=== PATIENT | female | born 2000 | race Hispanic/Latino ===

== ENCOUNTER 2022-04-26 01:30 | Emergency (ER) | payer MEDICAID ==
[~2022-04-26] VITALS: Ht 157.5 cm; Wt 65.3 kg
[2022-04-26] MEDS ORDERED: IBUP-2070 PO (03:30)
[2022-04-26] MEDS ORDERED: KETOROLAC 15MG/ML VIAL (15MG/ML) IM ONE (03:30)
[2022-04-26 04:23] VITALS: BP 105/78
== END 2022-04-26 04:43 | disposition home or self-care (01) ==
LOC: EDH 01:30
DX: G58.9 Mononeuropathy, unspecified (principal)
CPT/HCPCS: 73030; 73070; 81025; 96372; 99284; J1885

== ENCOUNTER 2023-08-02 01:46 | Emergency (ER) | payer MEDICAID, OTHER ==
[~2023-08-02] VITALS: Ht 157.5 cm; Wt 74.8 kg
[~2023-08-02 01:46] MED LIST: IBUP-2070 PO
[2023-08-02 02:28] LABS: BASOPHILS # (AUTO) 0.02 K/uL (0.00-0.20); BASOPHILS % (AUTO) 0.2 % (0.0-5.0); EOSINOPHILS # (AUTO) 0.13 K/uL (0.00-0.70); EOSINOPHILS % (AUTO) 1.5 % (0.0-8.0); HEMATOCRIT 36.8 % (36-48); IMMATURE GRANULOCYTE ABSOLUTE 0.02 K/uL (0-1); LYMPHOCYTES # (AUTO) 2.9 K/uL (1.0-4.8); MEAN CORPUSCULAR HGB CONC 34.2 g/dL (32.0-36.0); MEAN CORPUSCULAR VOLUME 84.6 fL (80-100); MONOCYTES # (AUTO) 0.6 K/uL (0.1-1.0); NEUTROPHILS # (AUTO) 5.1 K/uL (1.8-7.7); NEUTROPHILS % (AUTO) 58.1 % (40.0-77.0); PLATELET COUNT (AUTO) 317 K/uL (130-400); RED BLOOD CELL COUNT(AUTO) 4.35 MIL/uL (4.00-5.50); RED CELL DISTRIBUTION WIDTH 12.8 % (11.0-15.5); WHITE BLOOD COUNT (AUTO) 8.7 K/uL (4.8-10.8)
[2023-08-02 02:56] LABS: CREATININE 0.6 mg/dL (0.5-1.5); POTASSIUM 3.7 mmol/L (3.5-5.1)
[2023-08-02 03:01] LABS: ALBUMIN 3.6 g/dL (3.5-5.0); BILIRUBIN,TOTAL 0.1 mg/dL (0.2-1.0); TOTAL PROTEIN, SERUM 8.5 g/dL (6.0-8.3)
[2023-08-02 04:02] LABS: APPEARANCE,URINE CLEAR (CLEAR); BILIRUBIN,URINE NEGATIVE (NEGATIVE); COLOR,URINE LIGHT-YELLOW (YELLOW); GLUCOSE, URINE (UA) NEGATIVE (NEGATIVE); KETONES,URINE NEGATIVE (NEGATIVE); LEUKOCYTE ESTERASE ,URINE 75 Leu/uL (NEGATIVE); NITRATE,URINE NEGATIVE (NEGATIVE); OCCULT BLOOD,URINE NEGATIVE (NEGATIVE); PH,URINE 6.5 (5.0-8.0); PROTEIN,URINE NEGATIVE (NEGATIVE); UROBILINOGEN,URINE 0.2 mg/dL (0.2-1.0)
[2023-08-02 04:06] LABS: ADD UA MICROSCOPIC YES
[2023-08-02 04:12] LABS: HCG,QUALITATIVE URINE NEGATIVE (NEGATIVE)
[2023-08-02 04:14] LABS: MUCUS,URINE RARE LPF (None Seen); SQUAMOUS EPITHELIAL CELL,UR FEW /HPF (0-2); WBC,URINE 0-1 /HPF (0-1)
[2023-08-02 05:06] VITALS: BP 118/73; PULSE 85; RESP 17
== END 2023-08-02 05:08 | disposition home or self-care (01) ==
LOC: EDH 01:46
DX: R10.84 Generalized abdominal pain (principal)
CPT/HCPCS: 36415; 80053; 81001; 81025; 82550; 83690; 85025; 87088

== ENCOUNTER 2025-10-17 21:57 | Emergency (ER) | payer MEDICAID ==
[~2025-10-17] VITALS: Ht 157.5 cm; Wt 72.6 kg
[~2025-10-17 21:57] MED LIST changes: +IBUP-1492 PO; -IBUP-2070 PO
--- NOTE | 2025-10-17 22:20 | ERN ---
ED Note History of Present Illness Stated Complaint: WEAKNESS Chief Complaint: Weakness Time Seen by MD: 22:04 Dictation: Patient is a male who presented to the ER complaining of weakness, headache, dizziness and loose stools. Stated that symptoms started today. The patient denies fever, chills, cough, chest pain, no urinary symptoms. Allergies: Coded Allergies: No Known Allergies (Unverified Allergy, Unknown, 08/02/23) Home Meds Active Scripts Ibuprofen (Ibuprofen) 600 Mg Tablet, 600 MG PO Q6H PRN for PAIN, #30 TAB Prov:CAMILLE PRINGLE MD 04/26/22 Past Medical History Past Medical History: No Pertinent History Surgical History: None Social History: Negative, Lives with family History: Not Applicable Review of System Dictation NEGATIVE EXCEPT PER HPI Constitutional: Negative for fever,chills. He does reports fatigue Eyes: Negative for injury, pain,redness, and discharge ENT: Negative for injury,pain or swelling Cardiovascular: denies chest pain, palpitations, and edema Respiratory: Negative for shortness of breath, cough, and wheezing, Abdomen/GI: Negative for abdominal pain, nausea, vomiting, diarrhea, and constipation Back: Negative for injury and pain : Negative for injury, bleeding and discharge MS/Extremity: Negative for injury and deformity Skin: Negative for rash, and discoloration Neuro: Reports headache and dizziness, no numbness, tingling, and seizure Psych: Negative for suicide ideation, homicidal ideation, and hallucinations Initial Vital Sign VS Vital Signs Date Time Temp Pulse Resp B/P (MAP) Pulse Ox O2 Delivery O2 Flow Rate FiO2 10/17/25 22:00 98.8 88 18 132/84 99 10/17/25 23:32 Room Air* 0 21 Physical Exam Dictation General: awake, alert, NAD Head/Face: Normocephalic, atraumatic Eyes: PERRL, EOMI, vision at baseline ENT: oral cavity clear, TMs clear, no signs of infection Neck: Trachea midline, supple, no nuchal rigidity Cardiovascular: RRR, normal S1/S2, No MRGs, no JVD Respiratory: CTAB, no respiratory distress, No rales or wheezes Abdomen: Soft , no tender Skin: Warm, dry, normal turgor, no rash MS/Extremity: Pulses equal, no cyanosis, neurovascular intact, FROM Neuro: COAx4, GCS 15, strength 5/5, CN 2-12 intact, normal cerebellar exam, normal gait, Psych: Normal behavior, mood, and affect normal Results (Laboratory/Radiology) Laboratory/Radiology Laboratory Tests Test 10/17/25 22:22 10/18/25 00:00 White Blood Count 6.0 K/uL (4.8-10.8) Red Blood Count 4.83 MIL/uL (4.00-5.50) Hemoglobin 13.2 g/dL (12.0-16.0) Hematocrit 39.6 % (36-48) Mean Corpuscular Volume 82.0 fL (79-99) Mean Corpuscular Hemoglobin 27.3 pg (27.0-33.0) Mean Corpuscular Hemoglobin Concent 33.3 g/dL (32.0-36.0) Red Cell Distribution Width 13.4 % (11.0-15.5) Platelet Count 322 K/uL (130-400) Mean Platelet Volume 9.0 fL (7.5-10.5) Immature Granulocyte % (Auto) 0.2 % (0-1) Neutrophils (%) (Auto) 59.8 % (40.0-77.0) Lymphocytes (%) (Auto) 30.1 % (21.0-51.0) Monocytes (%) (Auto) 7.9 % (3.0-13.0) Eosinophils (%) (Auto) 1.5 % (0.0-8.0) Basophils (%) (Auto) 0.5 % (0.0-5.0) Neutrophils # (Auto) 3.6 K/uL (1.8-7.7) Lymphocytes # (Auto) 1.8 K/uL (1.0-4.8) Monocytes # (Auto) 0.5 K/uL (0.1-1.0) Eosinophils # (Auto) 0.09 K/uL (0.00-0.70) Basophils # (Auto) 0.03 K/uL (0.00-0.20) Absolute Immature Granulocyte (auto 0.01 K/uL (0-1) Nucleated Red Blood Cells 0.0 % (0.0-0.19) Sodium Level 138 mmol/L (136-145) Potassium Level 4.0 mmol/L (3.5-5.1) Chloride Level 102 mmol/L (101-111) Carbon Dioxide Level 30 mmol/L (21-32) Blood Urea Nitrogen 9 mg/dL (7-18) Creatinine 0.6 mg/dL (0.5-1.0) Glomerular Filtration Rate Calc 129 mL/min (>90) Random Glucose 107 mg/dL (70-105) H Total Calcium 9.0 mg/dL (8.5-10.1) Urine Color COLORLESS (YELLOW) Urine Appearance CLEAR (CLEAR) Urine pH 6.5 (5.0-8.0) Urine Specific [place] 1.013 (1.001-1.031) Urine Protein NEGATIVE mg/dL (NEGATIVE) Urine Glucose (UA) NEGATIVE mg/dL (NEGATIVE) Urine Ketones NEGATIVE mg/dL (NEGATIVE) Urine Occult Blood NEGATIVE (NEGATIVE) Urine Nitrate NEGATIVE (NEGATIVE) Urine Bilirubin NEGATIVE mg/dL (NEGATIVE) Urine Urobilinogen 0.2 mg/dL (0.2-1.0) Urine Leukocyte Esterase NEGATIVE Gene/uL Urine HCG, Qualitative NEGATIVE (NEGATIVE) ED Course ED Course Orders Procedure Category Date Status Time Urinalysis Profile LAB 10/17/25 Complete 22:14 ,Urine Test LAB 10/17/25 Complete 22:14 Cbc With Differential LAB 10/17/25 Complete 22:14 Basic Metabolic Panel LAB 10/17/25 Complete 22:14 0.9%Nacl 1000ml (Ns PHA 10/17/25 Complete 1000ml) 22:30 Current Medications Medications (Trade) Dose Ordered Sig/Kirsten Route PRN Reason Start Time Stop Time Status Last Admin Dose Admin Sodium Chloride 1,000 ml @ 0 mls/hr ONCE ONCE IV 10/17/25 22:30 10/17/25 22:31 DC 10/17/25 23:30 Vital Signs Date Time Temp Pulse Resp B/P (MAP) Pulse Ox O2 Delivery O2 Flow Rate FiO2 10/17/25 23:32 97.9 92 19 131/71 98 Room Air* 0 21 10/17/25 22:00 98.8 88 18 132/84 99 Medical Decision Making MDM 24-year-old female who presented to the ER complaining of fatigue, headache, dizziness, loose stool x1 day Viral gastroenteritis Dehydration Possible UTI Possible Ordered a CBC, BNP, UA, UA . 1 L bolus ordered IV NS Laboratory workup within normal limits. UA negative for UTI Patient re-evaluate the bedside said she is feeling much better after IV fluids. DX & DISP Disposition: Discharge Departure Impression: Primary Impression: Dehydration Additional Impressions: Fatigue, Viral diarrhea Condition: Improved Additional Instructions: Instruct patient to drink plenty amount of water to keep hydrated. RETURN TO ER FOR ANY ACUTE OR WORSENING SYMPTOMS. FOLLOW-UP IN 1-2 DAYS WITH PRIMARY PROVIDER FOR RECHECK OF TODAY'S SYMPTOMS. Referrals: SELF,REFERRAL (PCP) Time of Disposition: 00:17 GT SAWYER MD Oct 17, 2025 22:20
[2025-10-17 22:30] LABS: IMMATURE GRANULOCYTE ABSOLUTE 0.01 K/uL (0-1); NUCLEATED RED BLOOD CELLS 0.0 % (0.0-0.19); PLATELET COUNT (AUTO) 322 K/uL (130-400); RED BLOOD CELL COUNT(AUTO) 4.83 MIL/uL (4.00-5.50); RED CELL DISTRIBUTION WIDTH 13.4 % (11.0-15.5); WHITE BLOOD COUNT (AUTO) 6.0 K/uL (4.8-10.8)
[2025-10-17 22:38] LABS: CREATININE 0.6 mg/dL (0.5-1.0); GLOMERULAR FILTR. RATE CALC 129.0 mL/min (>90); GLUCOSE,RANDOM 107.0 mg/dL (70-105); SODIUM SERUM 138.0 mmol/L (136-145); UREA NITROGEN, BLOOD 9.0 mg/dL (7-18)
[2025-10-17] MEDS: 0.9%NACL 1000ML 1,000 ML IV ONE (23:30)
[2025-10-17 23:32] VITALS: BP 131/71; PULSE 92; RESP 19; TEMP 97.9; O2SAT 98
[2025-10-18 00:09] LABS: ADD UA MICROSCOPIC NO; APPEARANCE,URINE CLEAR (CLEAR); GLUCOSE, URINE (UA) NEGATIVE (NEGATIVE); LEUKOCYTE ESTERASE ,URINE NEGATIVE Leu/uL (NEGATIVE); NITRATE,URINE NEGATIVE (NEGATIVE); OCCULT BLOOD,URINE NEGATIVE (NEGATIVE)
[2025-10-18 00:10] LABS: HCG,QUALITATIVE URINE NEGATIVE (NEGATIVE)
== END 2025-10-18 00:23 | disposition home or self-care (01) ==
LOC: EDH 21:57
DX: E86.0 Dehydration (principal); A08.4 Viral intestinal infection, unspecified; R53.83 Other fatigue; R42 Dizziness and giddiness
CPT/HCPCS: 99283; 96360; 80048; 85025; 81003; 81025; 36415; J7030

== ENCOUNTER 2025-10-21 09:51 | Emergency (ER) | payer MEDICAID ==
[~2025-10-21] VITALS: Ht 157.5 cm; Wt 75.3 kg
--- NOTE | 2025-10-21 10:19 | ERN ---
ED Note History of Present Illness Stated Complaint: LLQ PAIN Chief Complaint: Abdominal Pain Time Seen by MD: 10:06 Dictation: PATIENT IS A 25-YEAR-OLD FEMALE COMING IN TODAY WITH COMPLAINTS OF UMBILICAL AND LEFT LOWER QUADRANT/ADNEXAL PAIN ONSET WAS YESTERDAY. NO FEVER NO CHILLS NO NAUSEA VOMITING. SHE DENIES CHANGES IN URINATION. SHE STATES SHE HAS ANYTHING TAKEN NOTHING PRIOR TO ARRIVAL FOR PAIN. LMP WAS LAST MONTH. Allergies: Coded Allergies: No Known Allergies (Unverified Allergy, Unknown, 08/02/23) Home Meds Active Scripts Ibuprofen (Ibuprofen 800 mg Tab) 800 Mg Tab, 800 MG PO Q8H PRN for fever or pain, #30 TAB 0 Refills Prov:HOANG SETHI POCKET [employer] CREASING MACHINE OPERATOR 10/21/25 Calcium Carbonate (Calcium) 500 Mg Calcium (1250 Mg) Tab.chew, 1 TAB PO BID for 30 Days, #60 TAB 0 Refills Prov:HOANG SETHI POCKET FLAP CREASING MACHINE OPERATOR 10/21/25 Ibuprofen (Ibuprofen) 600 Mg Tablet, 600 MG PO Q6H PRN for PAIN, #30 TAB Prov:CAMILLE PRINGLE MD 04/26/22 Past Medical History Past Medical History: No Pertinent History Surgical History: None Social History: Negative, Lives with family History: Not Applicable LMP: Sep 23, 2025 RN Note Reviewed/Agreed w/PFSH: Yes Review of System Dictation CONSTITUTIONAL: NEGATIVE EXCEPT FOR HPI HEAD/FACE: NEGATIVE EXCEPT FOR HPI EENT: NEGATIVE EXCEPT FOR HPI RESPIRATORY: NEGATIVE EXCEPT FOR HPI GASTROINTESTINAL/ABDOMINAL: NEGATIVE EXCEPT FOR HPI PERIUMBILICAL AND LEFT ADNEXAL/PELVIC PAIN GENITOURINARY: NEGATIVE EXCEPT FOR HPI MUSCULOSKELETAL: NEGATIVE EXCEPT FOR HPI INTEGUMENTARY: NEGATIVE EXCEPT FOR HPI NEUROLOGICAL/PSYCH: NEGATIVE EXCEPT FOR HPI HEMATOLOGIC/LYMPHATIC: NEGATIVE EXCEPT FOR HPI ALL SYSTEMS NEGATIVE, EXCEPT NOTED ABOVE. 13 POINT REVIEW OF SYSTEMS ASSESSED AND ALL NEGATIVE EXCEPT FOR ABOVE. Initial Vital Sign VS Vital Signs Date Time Temp Pulse Resp B/P (MAP) Pulse Ox O2 Delivery O2 Flow Rate FiO2 10/21/25 09:54 97.9 101 18 150/61 98 Room Air 0 10/21/25 09:56 21 Physical Exam Dictation VITAL SIGNS REVIEWED GENERAL APPEARANCE: ALERT, ORIENTED X 3, MILD ACUTE DISTRESS, WELL DEVELOPED, NOURISHED. OBESE HEAD AND FACE: NON-TRAUMATIC. EYES: PERRL, PINK CONJUNCTIVAS, EYELID NO TRAUMA, ANTERIOR CHAMBER WITH ARCUS SENILIS. EARS: PINNAS INTACT AND NO SIGNS OF TRAUMA OR ERYTHEMA EAR CANALS CLEAR AND NO DISCHARGE TM NO ERYTHEMA NOSE: NO DISCHARGE, NO BLEEDING. OROPHARYNX: MOUTH NORMAL, TONGUE PINK, PHARYNX CLEAR,NO ERYTHEMA, TONSILS NO EXUDATES, NO ABSCESSES NOTED, MUCOUS MEMBRANE MOIST NECK: SUPPLE, NON-TENDER, NO THYROMEGALY, NO MASSES, NO JVD, NO BRUITS BREAST:DEFERRED CHEST:NO TENDERNESS, NO CREPITUS, NO PARADOXICAL MOVEMENT, NO RETRACTIONS LUNGS:CLEAR, WELL-VENTILATED, SYMMETRIC, NO RALES, NO WHEEZING, NO RHONCHI, NO STRIDOR, GOOD BREATH SOUNDS BILATERALLY HEART: REGULAR RATE, REGULAR RHYTHM, NO MURMUR, NO GALLOPS VASCULAR: NO PERIPHERAL EDEMA, ABDOMEN: SOFT, POSITIVE BOWEL SOUNDS, NONDISTENDED, NO GUARDING, MILD PERIUMBILICAL AND LEFT LOWER PELVIC/ADNEXAL PAIN. REBOUND TENDERNESS NEGATIVE CVAT BILATERAL RECTAL: DEFERRED GENITAL: DEFERRED NEUROLOGICAL: NORMAL SPEECH, MOTOR FUNCTION INTACT, SENSORY FUNCTION INTACT MUSCULOSKELETAL: NECK NONTENDER, FULL RANGE OF MOTION, BACK NONTENDER, FULL RANGE OF MOTION, EXTREMITIES: NONTENDER, FULL RANGE OF MOTION SKIN: COLOR PINK, DRY, NO TURGOR, NO RASH, NO LACERATIONS, NO ABRASIONS, NO CONTUSIONS. LYMPHATIC: DEFERRED Results (Laboratory/Radiology) Laboratory/Radiology Laboratory Tests Test 10/21/25 10:22 10/21/25 10:26 White Blood Count 9.8 K/uL (4.8-10.8) Red Blood Count 4.58 MIL/uL (4.00-5.50) Hemoglobin 12.4 g/dL (12.0-16.0) Hematocrit 37.4 % (36-48) Mean Corpuscular Volume 81.7 fL (79-99) Mean Corpuscular Hemoglobin 27.1 pg (27.0-33.0) Mean Corpuscular Hemoglobin Concent 33.2 g/dL (32.0-36.0) Red Cell Distribution Width 13.4 % (11.0-15.5) Platelet Count 272 K/uL (130-400) Mean Platelet Volume 9.1 fL (7.5-10.5) Immature Granulocyte % (Auto) 0.3 % (0-1) Neutrophils (%) (Auto) 76.6 % (40.0-77.0) Lymphocytes (%) (Auto) 15.9 % (21.0-51.0) L Monocytes (%) (Auto) 6.1 % (3.0-13.0) Eosinophils (%) (Auto) 1.0 % (0.0-8.0) Basophils (%) (Auto) 0.1 % (0.0-5.0) Neutrophils # (Auto) 7.5 K/uL (1.8-7.7) Lymphocytes # (Auto) 1.6 K/uL (1.0-4.8) Monocytes # (Auto) 0.6 K/uL (0.1-1.0) Eosinophils # (Auto) 0.10 K/uL (0.00-0.70) Basophils # (Auto) 0.01 K/uL (0.00-0.20) Absolute Immature Granulocyte (auto 0.03 K/uL (0-1) Nucleated Red Blood Cells 0.0 % (0.0-0.19) Sodium Level 133 mmol/L (136-145) L Potassium Level 3.8 mmol/L (3.5-5.1) Chloride Level 101 mmol/L (101-111) Carbon Dioxide Level 27 mmol/L (21-32) Blood Urea Nitrogen 17 mg/dL (7-18) Creatinine 0.5 mg/dL (0.5-1.0) Glomerular Filtration Rate Calc 135 mL/min (>90) Random Glucose 96 mg/dL (70-105) Total Calcium 8.1 mg/dL (8.5-10.1) L Lipase 39 U/L (16-77) Urine Color LIGHT-YELLOW (YELLOW) Urine Appearance CLEAR (CLEAR) Urine pH 5.5 (5.0-8.0) Urine Specific [place] 1.021 (1.001-1.031) Urine Protein NEGATIVE mg/dL (NEGATIVE) Urine Glucose (UA) NEGATIVE mg/dL (NEGATIVE) Urine Ketones NEGATIVE mg/dL (NEGATIVE) Urine Occult Blood NEGATIVE (NEGATIVE) Urine Nitrate NEGATIVE (NEGATIVE) Urine Bilirubin NEGATIVE mg/dL (NEGATIVE) Urine Urobilinogen 0.2 mg/dL (0.2-1.0) Urine Leukocyte Esterase NEGATIVE Gene/uL Urine HCG, Qualitative NEGATIVE (NEGATIVE) 1215/ULTRASOUND DEMONSTRATES BILATERAL FLOW TO OVARIES, NO MASSES NO CYST Labs Reviewed?: Yes ED Course ED Course Orders Procedure Category Date Status Time Cbc With Differential LAB 10/21/25 Complete 10:16 ,Urine Test LAB 10/21/25 Complete 10:16 Urinalysis Profile LAB 10/21/25 Complete 10:16 Lipase LAB 10/21/25 Complete 10:16 Basic Metabolic Panel LAB 10/21/25 Complete 10:16 Acetaminophen 500mg PHA 10/21/25 Complete Tab (Tylenol 500mg T 11:30 Us Pelvic Non-Ob Comp US 10/21/25 Resulted 11:00 Current Medications Medications (Trade) Dose Ordered Sig/Kirsten Route PRN Reason Start Time Stop Time Status Last Admin Dose Admin Acetaminophen (TYLenol 500MG TAB) 1,000 mg ONCE ONCE PO 10/21/25 11:30 10/21/25 11:31 DC 10/21/25 12:16 Vital Signs Date Time Temp Pulse Resp B/P (MAP) Pulse Ox O2 Delivery O2 Flow Rate FiO2 10/21/25 12:34 99.0 98 18 115/55 99 Room Air* 0 10/21/25 10:26 98.6 101 18 116/71 97 Room Air* 0 10/21/25 09:56 97.9 101 16 150/61 99 Room Air* 0 10/21/25 09:54 97.9 101 18 150/61 98 Room Air 0 1215 PATIENT HAS A NEGATIVE ABDOMINAL WORKUP TO INCLUDE NO FEVER NO CHILLS URINE IS NEGATIVE HCG NEGATIVE ULTRASOUND NEGATIVE Medical Decision Making MDM MDM: DIFFERENTIAL DIAGNOSIS: ACUTE UTI/HERNIA/ELECTROLYTE IMBALANCE/DEHYD RATION/PELVIC PAIN/ECTOPIC /OVARIAN CYST/ADNEXAL PAIN RATIONALE: TESTS CONSIDERED AND ORDERED SECONDARY TO SHARED DECISION MAKING INCLUDE: LABS/URINALYSIS/ULTRASOUND PREVIOUS OUTSIDE RECORDS REVIEWED: OLD ER VISITS. RISK OF COMPLICATION AND/OR MORBIDITY OR MORTALITY OF PATIENT MANAGEMENT: NONE MEDICATIONS-PER MEDICATION RECONCILIATION NEED FOR HOSPITALIZATION: PATIENT DOES NOT MEET CRITERIA FOR HOSPITALIZATION. NONE NEED FOR EMERGENCY MAJOR/MINOR SURGERY: NO THERE ARE NO SOCIAL CONCERNS WITH THIS PATIENT. PRESCRIPTION DRUG MANAGEMENT IBUPROFEN PRESCRIPTIONS WILL INCLUDE SYMPTOMATIC CARE PATIENT'S PRIOR EXTERNAL MEDICAL RECORDS FROM OTHER ER VISITS WERE REVIEWED BY ME INDICATED. PRIOR TESTING AND RESULTS FROM PREVIOUS VISITS WERE REVIEWED. PRIOR TESTS WERE TAKEN INTO ACCOUNT WITH MEDICAL DECISION MAKING AND RESOURCE UTILIZATION, INDEPENDENT HISTORIAN/HISTORIANS WERE USED TO OBTAIN COMPLETE MEDICAL HISTORY. I INDEPENDENTLY INTERPRETED THE TEST THAT WERE PERFORMED, RESULTS WERE REVIEWED BY ME AND CONSIDERED FINDINGS ON RADIOLOGY IF ORDERED. MEDICAL MANAGEMENT AND EXAMINATION INTERPRETATION DISCUSSIONS WERE HAD BY ME WITH OTHER QUALIFIED HEALTHCARE PROFESSIONALS INDICATED FOR THE PATIENT'S CARE. DX & DISP Disposition: Discharge Departure Impression: Primary Impression: Pelvic pain in female Additional Impressions: Hyponatremia, Hypocalcemia Condition: Stable Scripts Ibuprofen (Ibuprofen 800 mg Tab) 800 Mg Tab 800 MG PO Q8H PRN for fever or pain, #30 TAB 0 Refills Prov: HOANG SETHI 10/21/25 Calcium Carbonate (Calcium) 500 Mg Calcium (1250 Mg) Tab.chew 1 TAB PO BID for 30 Days, #60 TAB 0 Refills Prov: HOANG SETHI 10/21/25 Additional Instructions: FOLLOW-UP WITH PRIMARY CARE PROVIDER IN 1 TO 2 DAYS. TAKE MEDICATIONS DIRECTED HERE IN THE EMERGENCY ROOM. OKAY TO CONTINUE HOME MEDICATIONS UNLESS OTHERWISE DISCUSSED DURING YOUR VISIT IN THE EMERGENCY ROOM TODAY. RETURN TO YOUR NEAREST EMERGENCY ROOM IF SYMPTOMS WORSEN OR IF THERE IS NO IMPROVEMENT. CALL 911 IF YOU NEED IMMEDIATE ASSISTANCE. TAKE TYLENOL OR MOTRIN OVER-THE-C OUNTER NEEDED AND IF NO CONTRAINDICATIONS ARE PRESENT. INCREASE ORAL HYDRATION. A WOUND CULTURE OR URINE CULTURE WAS ORDERED HERE IN THE EMERGENCY ROOM DEPARTMENT PLEASE FOLLOW-UP WITH PRIMARY CARE PROVIDER AND ADVISE THEM TO GET REPEAT PORTS FROM OUR FACILITY. IF YOU HAD ANY JESSICA WRAP/SPLINTS THAT WERE APPLIED HERE, PLEASE DO NOT REMOVE THEM UNTIL YOU SEE YOUR PRIMARY CARE OR SPECIALTY. TAKE IBUPROFEN DIRECTED WITH FOOD FOR PAIN. TAKE CALCIUM DIRECTED UNTIL GONE. DIET AND ACTIVITY TOLERATED, SEE YOUR PRIMARY CARE DOCTOR FOR FOLLOW UP AND MANAGEMENT Referrals: SELF,REFERRAL (PCP) Time of Disposition: 12:17 I have reviewed the case, and I agree with, Diagnosis and Plan I performed a substantive portion of the visit. I have reviewed and personally made and approve the management plan that is documented in the notes by myself with OLE/resident. I acknowledged full responsibility for the patient's management plan. HOANG SETHI Oct 21, 2025 10:19 MADELIN JASON DO Oct 21, 2025 15:44
[2025-10-21 10:34] LABS: IMMATURE GRANULOCYTE ABSOLUTE 0.03 K/uL (0-1); NUCLEATED RED BLOOD CELLS 0.0 % (0.0-0.19); PLATELET COUNT (AUTO) 272 K/uL (130-400); RED BLOOD CELL COUNT(AUTO) 4.58 MIL/uL (4.00-5.50); RED CELL DISTRIBUTION WIDTH 13.4 % (11.0-15.5); WHITE BLOOD COUNT (AUTO) 9.8 K/uL (4.8-10.8)
[2025-10-21 10:37] LABS: CREATININE 0.5 mg/dL (0.5-1.0); GLOMERULAR FILTR. RATE CALC 135.0 mL/min (>90); GLUCOSE,RANDOM 96.0 mg/dL (70-105); SODIUM SERUM 133.0 mmol/L (136-145); UREA NITROGEN, BLOOD 17.0 mg/dL (7-18)
[2025-10-21 10:52] LABS: APPEARANCE,URINE CLEAR (CLEAR); GLUCOSE, URINE (UA) NEGATIVE (NEGATIVE); LEUKOCYTE ESTERASE ,URINE NEGATIVE Leu/uL (NEGATIVE); NITRATE,URINE NEGATIVE (NEGATIVE); OCCULT BLOOD,URINE NEGATIVE (NEGATIVE)
[2025-10-21 10:54] LABS: HCG,QUALITATIVE URINE NEGATIVE (NEGATIVE)
[2025-10-21 10:55] LABS: ADD UA MICROSCOPIC NO
[2025-10-21] MEDS ORDERED: CALC-322 PO (12:17)
[2025-10-21] MEDS ORDERED: IBUP-2077 PO (12:17)
[2025-10-21 12:34] VITALS: BP 115/55; PULSE 98; RESP 18; TEMP 99; O2SAT 99
--- NOTE | 2025-10-21 12:51 | HMCIMG ---
EXAM: US Pelvis, Complete. CLINICAL HISTORY: LEFT ADNEXAL/PELVIC TENDERNESS. TECHNIQUE: Transvaginal and transabdominal pelvic ultrasound (complete) with image documentation. COMPARISON: None provided. FINDINGS: ENDOMETRIUM: Normal thickness. UTERUS/CERVIX: The uterus appears within normal limits. No uterine fibroid or other mass evident. RIGHT OVARY: There appears to be normal Doppler flow on transabdominal images. No abnormal mass. LEFT OVARY: There appears to be normal Doppler flow on transabdominal images. No abnormal mass. FREE FLUID: No free fluid. IMPRESSION: Unremarkable transabdominal pelvic ultrasound. /[place]
== END 2025-10-21 12:36 | disposition home or self-care (01) ==
LOC: EDH 09:51
DX: R10.20 Pelvic and perineal pain unspecified side (principal); E87.1 Hypo-osmolality and hyponatremia; E83.51 Hypocalcemia; R10.33 Periumbilical pain
CPT/HCPCS: 36415; 76856; 80048; 81003; 81025; 83690; 85025; 99284